=== PATIENT | female | born 2000 | race Two or more races ===

== ENCOUNTER 2021-08-09 17:01 | Emergency (ER) | payer OTHER ==
[~2021-08-09] VITALS: Ht 167.6 cm; Wt 96.7 kg
[2021-08-09 20:24] VITALS: BP 127/70
== END 2021-08-09 21:30 | disposition home or self-care (01) ==
LOC: ED 19:17
DX: R51.9 Headache, unspecified (principal); N76.0 Acute vaginitis
CPT/HCPCS: 36415; 76830; 80053; 81001; 84703; 85025; 87210; 87491; 87591; 87808; 93005; 96361; 96374; 96375; 99285; J1200; J1885; J2765; J7030